=== PATIENT | female | born 1980 | race Two or more races ===

== ENCOUNTER 2024-06-08 14:56 | Emergency (ER) | payer OTHER, BC ==
[~2024-06-08] VITALS: Ht 167.6 cm; Wt 98.9 kg
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
[2024-06-08] MEDS ORDERED: CYCL-837 PO (16:52)
[2024-06-08] MEDS ORDERED: HYDR-4902 PO (16:52)
[2024-06-08 18:03] VITALS: BP 140/90; PULSE 100; RESP 17; TEMP 98.9; O2SAT 98
== END 2024-06-08 18:07 | disposition home or self-care (01) ==
LOC: ER 14:56
DX: M54.2 Cervicalgia (principal); Z98.890 Other specified postprocedural states; V89.2XXA Person injured in unspecified motor-vehicle accident, traffic, initial encounter; Y93.89 Activity, other specified; Y92.89 Other specified places as the place of occurrence of the external cause; Y99.8 Other external cause status